=== PATIENT | male | born 1980 | race Caucasian/White ===

== ENCOUNTER 2021-12-30 08:09 | Emergency (ER) | payer MEDICAID ==
[~2021-12-30] VITALS: Ht 167.6 cm; Wt 90.9 kg
[2021-12-30] MEDS ORDERED: OMEP20 PO (08:16)
[2021-12-30] MEDS ORDERED: SERT-158 PO (08:16)
[2021-12-30] MEDS ORDERED: LURA20TA PO (08:16)
[2021-12-30] MEDS ORDERED: OLAN5TAB52 PO (08:16)
[2021-12-30 09:24] VITALS: BP 120/76
== END 2021-12-30 09:40 | disposition home or self-care (01) ==
LOC: EMS 08:09
DX: S93.401A Sprain of unspecified ligament of right ankle, initial encounter (principal); Z79.899 Other long term (current) drug therapy; Z87.891 Personal history of nicotine dependence; X50.1XXA Overexertion from prolonged static or awkward postures, initial encounter; Y93.89 Activity, other specified; Y92.89 Other specified places as the place of occurrence of the external cause; Y99.8 Other external cause status
CPT/HCPCS: 99284; 73610-TC; 73630-TC; Z7502

== ENCOUNTER 2022-04-25 08:52 | Inpatient (IN) | payer MEDICAID ==
[~2022-04-25] VITALS: Ht 167.6 cm; Wt 91.7 kg
[~2022-04-25 08:52] MED LIST: LURA20TA PO; OLAN5TAB52 PO; OMEP20 PO; SERT-158 PO
[2022-04-25] MEDS ORDERED: RISP2TAB45 PO (09:12)
[2022-04-25] MEDS ORDERED: HYDR-4584 PO (09:12)
[2022-04-25] MEDS ORDERED: BENZ1TAB96 PO (09:12)
[2022-04-25] MEDS ORDERED: MAG HYDROX/AL HYDROX/SIMETH ES 30 ML SUSPENSION UDCUP PO ONE (09:15)
[2022-04-25] MEDS ORDERED: ONDANSETRON HCL 4 MG/2 ML VIAL IM ONE (09:15)
[2022-04-25] MEDS ORDERED: ACETAMINOPHEN 500 MG TABLET PO ONE (09:15)
[2022-04-25 09:47] LABS: BASOPHILS % (AUTO) 0.5 % (0.0-2.0); EOSINOPHILS % (AUTO) 0.3 % (1.0-6.0); HEMATOCRIT 44.3 % (41-53); HEMOGLOBIN 15.4 g/dL (13.5-17.5); LYMPHOCYTES # (AUTO) 1.4 K/uL (1.0-4.8); LYMPHOCYTES % (AUTO) 13.8 % (22.0-44.0); MEAN CORPUSCULAR HEMOGLOBIN 27.4 pg (26.0-34.0); MEAN CORPUSCULAR HGB CONC 34.8 G/dL (31.0-37.0); MEAN CORPUSCULAR VOLUME 79 fL (80-100); MONOCYTES # (AUTO) 0.8 K/uL (0.1-1.0); MONOCYTES % (AUTO) 8.5 % (2.0-9.0); NEUTROPHILS # (AUTO) 7.7 K/uL (1.8-7.7); NEUTROPHILS % (AUTO) 76.9 % (40.0-70.0); PLATELET COUNT (AUTO) 359 K/uL (150-450); RED BLOOD CELL COUNT(AUTO) 5.63 MIL/uL (4.50-5.90); RED CELL DISTRIBUTION WIDTH 14.5 % (11.5-14.5)
[2022-04-25 10:09] LABS: AMPHET/METH SCREEN,URINE NEGATIVE (NEGATIVE); BARBITURATE SCREEN, URINE NEGATIVE (NEGATIVE); BENZODIAZEPINES SCREEN,URINE NEGATIVE (NEGATIVE); CANNABINOID SCREEN,URINE NEGATIVE (NEGATIVE); COCAINE SCREEN,URINE NEGATIVE (NEGATIVE); METHADONE SCREEN, URINE NEGATIVE (NEGATIVE); OPIATE SCREEN,URINE NEGATIVE (NEGATIVE); PHENCYCLIDINE SCREEN,URINE NEGATIVE (NEGATIVE)
[2022-04-25 10:16] LABS: ALANINE AMINOTRANSFERASE 29 U/L (12-78); ALBUMIN 3.6 g/dL (3.4-5.0); ALKALINE PHOSPHATASE 113 U/L (46-116); ANION GAP 8 mmol/L (8-16); ASPARTATE AMINOTRANSFERASE 17 U/L (15-37); BILIRUBIN,TOTAL 1.7 mg/dL (0.1-1.0); CALCIUM, TOTAL 9.3 mg/dL (8.8-10.5); CARBON DIOXIDE 35 mmol/L (22-29); CHLORIDE 79 mmol/L (98-107); GLUCOSE,RANDOM 269 mg/dL (70-110); LIPASE 126 U/L (73-393); TOTAL PROTEIN, SERUM 7.5 g/dL (6.4-8.2); UREA NITROGEN, BLOOD 10 mg/dL (7-18)
[2022-04-25 10:20] LABS: GLOMERULAR FILTR. RATE CALC > 60 mL/min (>60); SODIUM SERUM 122 mmol/L (136-145)
[2022-04-25 10:21] LABS: POTASSIUM 2.6 mmol/L (3.5-5.1)
[2022-04-25] MEDS ORDERED: POTASSIUM CHLORIDE 10% 40 MEQ/30 ML LIQUID UDCUP PO ONE ×2 (10:30→11:10)
[2022-04-25] MEDS ORDERED: ONDANSETRON HCL 4 MG/2 ML VIAL IVP PRN ×2 (10:30→17:45)
[2022-04-25] MEDS ORDERED: ACETAMINOPHEN 325 MG TABLET PO PRN ×2 (10:30→17:45)
[2022-04-25] MEDS ORDERED: SODIUM CHLORIDE 0.9% 1,000 ML IV ONE (10:30)
[2022-04-25] MEDS ORDERED: POTASSIUM CHL 10 MEQ/WATER 50 ML IV ONE (11:00)
[2022-04-25] MEDS ORDERED: ONDANSETRON HCL 4 MG/2 ML VIAL IVP ONE (11:00)
[2022-04-25] MEDS ORDERED: POTASSIUM CHLORIDE 40 MEQ in SODIUM CHLORIDE 0.45% 1,000 ML IV ONE (12:00)
[2022-04-25] MEDS ORDERED: LORazepam 2 MG/ML VIAL IVP ONE (12:00)
[2022-04-25 12:05] LABS: COVID AG,FIA SOURCE NASAL SWAB
[2022-04-25 16:14] LABS: APPEARANCE,URINE TURBID (CLEAR); BILIRUBIN,URINE NEGATIVE (NEGATIVE); GLUCOSE, URINE (UA) NEGATIVE (NEGATIVE); KETONES,URINE TRACE mg/dL (NEGATIVE); LEUKOCYTE ESTERASE ,URINE NEGATIVE (NEGATIVE); NITRATE,URINE NEGATIVE (NEGATIVE); OCCULT BLOOD,URINE NEGATIVE (NEGATIVE); PROTEIN,URINE 30-70 mg/dL (NEGATIVE); SPECIFIC GRAVITIY, URINE 1.014 (1.003-1.030)
[2022-04-25 16:28] LABS: BACTERIA,URINE None Seen /HPF (None Seen); RBC,URINE 0-2 /HPF (0-2); SQUAMOUS EPITHELIAL CELL,UR Few /LPF (None Seen); WBC,URINE 0-2 /HPF (0-5)
[2022-04-25 16:29] LABS: AMORPHOUS SEDIMENT,UR Few /LPF (None Seen); FINE GRANULAR CASTS,URINE 0-2 /LPF (None Seen); HYALINE CASTS, URINE None Seen /LPF (None Seen)
[2022-04-25 16:39] VITALS: BP 121/82
[2022-04-25] MEDS ORDERED: MORPHINE SULFATE 2 MG/ML SYRINGE IVP PRN (17:45)
[2022-04-25] MEDS ORDERED: LORazepam 2 MG/ML VIAL IVP PRN (17:45)
[2022-04-25] MEDS ORDERED: MAGNESIUM SULFATE 2 GM/WATER 50 ML IV PRN (17:45)
[2022-04-25] MEDS ORDERED: MAGNESIUM HYDROXIDE SUSPENSION 30 ML UDCUP PO PRN (17:45)
[2022-04-25] MEDS ORDERED: ALBUTEROL SULFATE 2.5 MG/0.5 ML NEB SOLUTION NEB PRN (17:45)
[2022-04-25] MEDS ORDERED: BISACODYL 10 MG RECTAL RECTAL SUPPOSITORY PR PRN (17:45)
[2022-04-25] MEDS ORDERED: HYDROCODONE/ACETAMINOPHEN 5-325 MG TABLET PO PRN (17:45)
[2022-04-25] MEDS ORDERED: MAGNESIUM SULFATE 4 GM/WATER 100 ML IV PRN (17:45)
[2022-04-25] MEDS ORDERED: MAGNESIUM OXIDE 400 MG TABLET PO PRN (17:45)
[2022-04-25] MEDS ORDERED: IPRATROPIUM BROMIDE 0.5 MG/2.5 ML NEB SOLUTION NEB PRN (17:45)
[2022-04-25] MEDS ORDERED: POTASSIUM CHL 10 MEQ/WATER 50 ML IV PRN (17:45)
[2022-04-25 18:24] LABS: BASOPHILS % (AUTO) 1.3 % (0.0-2.0); EOSINOPHILS % (AUTO) 0.4 % (1.0-6.0); HEMATOCRIT 39.2 % (41-53); HEMOGLOBIN 13.4 g/dL (13.5-17.5); LYMPHOCYTES # (AUTO) 1.5 K/uL (1.0-4.8); LYMPHOCYTES % (AUTO) 19.7 % (22.0-44.0); MEAN CORPUSCULAR HGB CONC 34.1 G/dL (31.0-37.0); MEAN CORPUSCULAR VOLUME 79 fL (80-100); MONOCYTES # (AUTO) 0.6 K/uL (0.1-1.0); MONOCYTES % (AUTO) 7.8 % (2.0-9.0); NEUTROPHILS # (AUTO) 5.3 K/uL (1.8-7.7); NEUTROPHILS % (AUTO) 70.8 % (40.0-70.0); PLATELET COUNT (AUTO) 285 K/uL (150-450); RED BLOOD CELL COUNT(AUTO) 4.95 MIL/uL (4.50-5.90); RED CELL DISTRIBUTION WIDTH 14.7 % (11.5-14.5)
[2022-04-25 18:40] LABS: ALANINE AMINOTRANSFERASE 24 U/L (12-78); ALBUMIN 2.9 g/dL (3.4-5.0); ALKALINE PHOSPHATASE 86 U/L (46-116); ANION GAP 7 mmol/L (8-16); ASPARTATE AMINOTRANSFERASE 13 U/L (15-37); BILIRUBIN,TOTAL 0.9 mg/dL (0.1-1.0); CALCIUM, TOTAL 8.4 mg/dL (8.8-10.5); CARBON DIOXIDE 32 mmol/L (22-29); CHLORIDE 90 mmol/L (98-107); CREATININE 1.09 mg/dL (0.60-1.30); GLUCOSE,RANDOM 217 mg/dL (70-110); SODIUM SERUM 129 mmol/L (136-145); TOTAL PROTEIN, SERUM 6.1 g/dL (6.4-8.2); UREA NITROGEN, BLOOD 8 mg/dL (7-18)
[2022-04-25 18:43] LABS: GLOMERULAR FILTR. RATE CALC > 60 mL/min (>60)
[2022-04-25 19:55] VITALS: BP 115/71
[2022-04-25] MEDS: THIAMINE 100 MG TABLET PO SCH (20:38)
[2022-04-25] MEDS: BENZTROPINE MESYLATE 1 MG TABLET PO SCH (20:38)
[2022-04-25] MEDS ORDERED: OMEPRAZOLE 20 MG CAPSULE PO SCH (21:00)
[2022-04-25 21:04] VITALS: BP 138/82
[2022-04-25] MEDS: SODIUM CHLORIDE 0.9% 1,000 ML IV SCH (21:43)
[2022-04-25 22:21] LABS: POTASSIUM 3.1 mmol/L (3.5-5.1)
[2022-04-26 00:16] VITALS: BP 111/71
[2022-04-26] MEDS: POTASSIUM CHLORIDE 20 MEQ ER TABLET PO PRN ×2 (01:19→11:15)
[2022-04-26] MEDS: ZOLPIDEM TARTRATE 5 MG TABLET PO PRN ×2 (01:21→23:07)
[2022-04-26 05:57] VITALS: BP 124/77
[2022-04-26 06:37] LABS: GLUCOMETER DEV NAME(LOC) 5S.1B; GLUCOSE,POINT OF CARE 137 MG/DL (70-110)
[2022-04-26 07:35] VITALS: BP 137/83
[2022-04-26 07:44] LABS: MAGNESIUM 2.3 mg/dL (1.80-2.40); POTASSIUM 3.4 mmol/L (3.5-5.1)
[2022-04-26] MEDS: MULTIVITAMINS, THERAPEUTIC TABLET PO SCH (08:23)
[2022-04-26] MEDS: BENZTROPINE MESYLATE 1 MG TABLET PO SCH ×2 (08:23→20:01)
[2022-04-26] MEDS: THIAMINE 100 MG TABLET PO SCH (08:23)
[2022-04-26] MEDS: PANTOPRAZOLE SODIUM 40 MG DR TABLET PO SCH (08:23)
[2022-04-26] MEDS: FOLIC ACID 1 MG TABLET PO SCH (08:23)
[2022-04-26] MEDS: RisperiDONE 2 MG TABLET PO SCH (11:15)
[2022-04-26] MEDS: OLANZapine 5 MG TABLET PO SCH (11:16)
[2022-04-26 12:10] VITALS: BP 123/82
[2022-04-26] MEDS ORDERED: DEXTROSE 50%-WATER 25 GM/50 ML SYRINGE IVP PRN (13:00)
[2022-04-26] MEDS ORDERED: INSULIN LISPRO 100 UNITS/ML SQ PRN (13:00)
[2022-04-26 13:06] LABS: GLUCOMETER DEV NAME(LOC) 5S.1B; GLUCOSE,POINT OF CARE 166 MG/DL (70-110)
[2022-04-26 15:45] VITALS: BP 132/80
[2022-04-26] MEDS: SODIUM CHLORIDE 0.9% 1,000 ML IV SCH (16:29)
[2022-04-26 19:53] VITALS: BP 121/80
[2022-04-26 20:56] LABS: GLUCOMETER DEV NAME(LOC) 5S.2B; GLUCOSE,POINT OF CARE 159 MG/DL (70-110)
[2022-04-26 21:37] LABS: GLUCOMETER DEV NAME(LOC) 5S.1B; GLUCOSE,POINT OF CARE 131 MG/DL (70-110)
[2022-04-27 00:14] VITALS: BP 131/84
[2022-04-27 04:30] VITALS: BP 127/75
[2022-04-27 07:06] LABS: GLUCOMETER DEV NAME(LOC) 5S.2B; GLUCOSE,POINT OF CARE 123 MG/DL (70-110)
[2022-04-27 07:45] VITALS: BP 116/72
[2022-04-27] MEDS: FOLIC ACID 1 MG TABLET PO SCH (08:13)
[2022-04-27] MEDS: MULTIVITAMINS, THERAPEUTIC TABLET PO SCH (08:13)
[2022-04-27] MEDS: OLANZapine 5 MG TABLET PO SCH (08:13)
[2022-04-27] MEDS: RisperiDONE 2 MG TABLET PO SCH (08:13)
[2022-04-27] MEDS: THIAMINE 100 MG TABLET PO SCH (08:13)
[2022-04-27] MEDS: BENZTROPINE MESYLATE 1 MG TABLET PO SCH (08:14)
[2022-04-27] MEDS: PANTOPRAZOLE SODIUM 40 MG DR TABLET PO SCH (08:14)
[2022-04-27 11:20] VITALS: BP 119/76
[2022-04-27] MEDS: SODIUM CHLORIDE 0.9% 1,000 ML IV SCH ×2 (14:29→21:33)
[2022-04-27 15:10] VITALS: BP 120/73
[2022-04-27 16:19] LABS: ANION GAP 5 mmol/L (8-16); CALCIUM, TOTAL 8.5 mg/dL (8.8-10.5); CARBON DIOXIDE 33 mmol/L (22-29); CHLORIDE 99 mmol/L (98-107); CREATININE 1.28 mg/dL (0.60-1.30); GLUCOSE,RANDOM 126 mg/dL (70-110); POTASSIUM 3.9 mmol/L (3.5-5.1); SODIUM SERUM 137 mmol/L (136-145); UREA NITROGEN, BLOOD 15 mg/dL (7-18)
[2022-04-27 16:20] LABS: GLOMERULAR FILTR. RATE CALC > 60 mL/min (>60)
[2022-04-27 16:34] LABS: THYROID STIMULATING HORMONE 2.38 uIU/mL (0.36-3.74)
[2022-04-27 17:16] LABS: GLUCOMETER DEV NAME(LOC) 5S.1B; GLUCOSE,POINT OF CARE 119 MG/DL (70-110)
[2022-04-27] MEDS: SERTRALINE HCL 50 MG TABLET PO SCH (17:35)
[2022-04-27] MEDS ORDERED: RisperiDONE 2 MG TABLET PO SCH (21:00)
[2022-04-27] MEDS ORDERED: BREXPIPRAZOLE 1 MG TABLET PO SCH (21:00)
[2022-04-27 21:02] VITALS: BP 130/77
[2022-04-27] MEDS: ZOLPIDEM TARTRATE 5 MG TABLET PO PRN (21:27)
[2022-04-28 01:47] VITALS: BP 127/71
[2022-04-28 04:17] VITALS: BP 125/85
[2022-04-28 07:28] VITALS: BP 124/80
[2022-04-28] MEDS ORDERED: BREX1TAB PO (08:38)
[2022-04-28] MEDS ORDERED: CARV3 PO (08:38)
[2022-04-28] MEDS ORDERED: RISP2TAB86 PO (08:38)
[2022-04-28] MEDS ORDERED: PANT-31 PO (08:38)
[2022-04-28] MEDS ORDERED: SERT-439 PO (08:38)
[2022-04-28] MEDS: FOLIC ACID 1 MG TABLET PO SCH (09:43)
[2022-04-28] MEDS: PANTOPRAZOLE SODIUM 40 MG DR TABLET PO SCH (09:43)
[2022-04-28] MEDS: SERTRALINE HCL 50 MG TABLET PO SCH (09:44)
[2022-04-28] MEDS: THIAMINE 100 MG TABLET PO SCH (09:44)
[2022-04-28] MEDS: MULTIVITAMINS, THERAPEUTIC TABLET PO SCH (09:44)
[2022-04-28] MEDS: SODIUM CHLORIDE 0.9% 1,000 ML IV SCH (09:45)
[2022-04-28 11:37] VITALS: BP 138/78
[2022-04-28 15:46] VITALS: BP 139/91
[2022-04-28 17:21] LABS: GLUCOMETER DEV NAME(LOC) 5N.1C; GLUCOSE,POINT OF CARE 134 MG/DL (70-110)
[2022-04-28] MEDS ORDERED: CARVEDILOL 3.125 MG TABLET PO SCH (21:00)
== END 2022-04-28 19:00 | disposition home or self-care (01) | DRG 426 ==
LOC: EMS 09:04 → 6S 14:54 → 5S 21:00
PROVIDERS: ADMIT Hospitalist; ATTEND Hospitalist
DX: E87.1 Hypo-osmolality and hyponatremia (principal); R45.851 Suicidal ideations; F25.1 Schizoaffective disorder, depressive type; R19.7 Diarrhea, unspecified; E87.6 Hypokalemia; E86.0 Dehydration; F10.10 Alcohol abuse, uncomplicated; E11.9 Type 2 diabetes mellitus without complications; F32.A Depression, unspecified; Z20.822 Contact with and (suspected) exposure to COVID-19; Z59.00 Homelessness unspecified; Z87.891 Personal history of nicotine dependence; Z91.51 Personal history of suicidal behavior; Z79.899 Other long term (current) drug therapy
CPT/HCPCS: 71045; 80048; 80053; 81001; 82962; 83036; 83690; 83735; 84132; 84295; 84443; 84484; 85025; 93005; 99291; G0480; J2060; J2270; J2405; J3480; J7030; Q9967; 36415-L1; 36415-TC